=== PATIENT | female | born 1955 | race Caucasian/White ===

== ENCOUNTER 2017-04-20 07:20 | Inpatient (IN) ==
--- NOTE | 2017-04-19 17:42 | Discharge Summary ---
<Joanna Baeza E - Last Filed: 04/19/17 17:40> Date of Encounter: 04/19/17 - Discharge Diagnosis (1) Arthritis of right knee Priority: Primary Status: Chronic (2) Multiple sclerosis, primary progressive Priority: Secondary Status: Chronic (3) HTN (hypertension) Priority: Secondary Status: Chronic Qualifiers: Hypertension type: unspecified Qualified Code(s): I10 - Essential (primary ) hypertension (4) HLD (hyperlipidemia) Priority: Secondary Status: Chronic Qualifiers: Hyperlipidemia type: unspecified Qualified Code(s): E78.5 - Hyperlipidemia , unspecified (5) Hypothyroid Priority: Secondary Status: Chronic Qualifiers: Hypothyroidism type: unspecified Qualified Code(s): E03.9 - Hypothyroidism , unspecified (6) GERD (gastroesophageal reflux disease) Priority: Secondary Status: Chronic - Discharge Medications Home Medications: Aspirin Enteric Coated [Aspirin EC] 325 mg PO DAILY #21 tablet. 04/19/17 [Rx] OxyCODONE Immed Rel [Roxicodone 5 MG] 5 mg PO Q6HR PRN 7 Days #28 tablet [Rx] Baclofen [Lioresal] 10 mg PO TID PRN 04/20/17 [History] Cholecalciferol (D-3) [Vitamin D] 6,000 unit PO DAILY 04/20/17 [History] Dalfampridine [Ampyra] 10 mg PO BID 04/20/17 [History] Docusate [Colace] 100 mg PO DAILY 04/20/17 [History] Esomeprazole Magnesium [Nexium] 40 mg PO DAILY 04/20/17 [History] Lactobacillus Acidophilus/Fos [Acidophilus Probiotic Tablet] 1 tab PO DAILY 09/01 [History] Levothyroxine [Synthroid] 125 mcg PO 0630 04/20/17 [History] Lisinopril [Zestril] 5 mg PO DAILY 04/20/17 [History] Modafinil [Provigil] 200 mg PO DAILY 04/20/17 [History] Multivitamin [One Daily Essential] 1 tab PO DAILY 04/20/17 [History] Sertraline [Zoloft] 50 mg PO BID 04/20/17 [History] Simvastatin [Zocor] 40 mg PO HS 04/20/17 [History] Tizanidine HCl 4 mg PO HS PRN 04/20/17 [History] Allergies/Adverse Reactions: 3 Allergy/AdvReac Type Severity Reaction Status Date / Time Fenoprofen [From Nalfon] Allergy Rash Verified 04/20/17 08:07 Primary care physician: Curt Heart MD - Patient Status Disposition: Transfer Inpatient Rehab Fac Condition: Good - Discharge Instructions Follow Up With: Joanna Baeza PAC [Physician Pinball Machine Repairer] - 04/30/17 1:15 pm Kingston Gifford MD [Partnered Physician] - 05/20/17 4:30 pm Curt Heart MD [Primary Care Provider] - 08/11/17 8:00 am - Hospital Course Hospital course: Ms. Carlos is a 61 year old female - Time Spent with Patient Total time spent providing and/or coordinating discharge services: <Kingston Gifford - Last Filed: 04/23/17 08:03> Date of Encounter: 04/23/17 Time of Encounter: 08:03 - Discharge Diagnosis (1) Status post total right knee replacement Priority: Primary Status: Acute (2) Arthritis of right knee Priority: Primary Status: Chronic (3) GERD (gastroesophageal reflux disease) Priority: Secondary Status: Chronic Qualifiers: Esophagitis presence: esophagitis presence not specified Qualified Code(s) : K21.9 - Gastro-esophageal reflux disease without esophagitis (4) HLD (hyperlipidemia) Priority: Secondary Status: Chronic Qualifiers: Hyperlipidemia type: unspecified Qualified Code(s): E78.5 - Hyperlipidemia , unspecified (5) HTN (hypertension) Priority: Secondary Status: Chronic Qualifiers: Hypertension type: unspecified Qualified Code(s): I10 - Essential (primary ) hypertension (6) Hypothyroid Priority: Secondary Status: Chronic Qualifiers: Hypothyroidism type: unspecified Qualified Code(s): E03.9 - Hypothyroidism , unspecified (7) Multiple sclerosis, primary progressive Priority: Secondary Status: Chronic (8) Acute blood loss anemia Priority: Primary Status: Acute Primary care physician: Curt Heart MD - Patient Status Functional capacity at discharge: uses cane/walker Overall status at discharge: patient is progressing back to baseline - Hospital Course Hospital course: Ms. Carlos is a 61 year old female Status post right total knee replacement The patient had an uneventful postoperative course. They received antibiotics and physical therapy and were discharged in stable condition. There will follow -up in the office in 2 weeks. - Time Spent with Patient Total time spent providing and/or coordinating discharge services:
--- NOTE | 2017-04-19 17:46 | Physician Discharge Referral ---
ExtendedCare Referral Info Transfer To: [facility] Provider in Charge: Dr Kingston Gifford - Diagnosis (1) Arthritis of right knee Priority: Secondary Status: Chronic (2) Multiple sclerosis, primary progressive Priority: Secondary Status: Chronic (3) HTN (hypertension) Priority: Secondary Status: Chronic (4) HLD (hyperlipidemia) Priority: Secondary Status: Chronic (5) Hypothyroid Priority: Secondary Status: Chronic (6) GERD (gastroesophageal reflux disease) Priority: Secondary Status: Chronic (7) Status post total right knee replacement Priority: Primary Status: Acute Expected Duration of Placement: less than 30 days Prognosis: Good Aware of Diagnosis: Patient Aware of Prognosis: Patient - Transfer Medications Prescriptions: OxyCODONE Immed Rel [Roxicodone 5 MG] 5 mg PO Q6HR PRN 7 Days #28 tablet PRN Reason: Pain Aspirin Enteric Coated [Aspirin EC] 325 mg PO DAILY #21 tablet.dr Hodge Medications: Ampyra 08/12/15 [History] Baclofen 08/12/15 [History] Benzonatate [Tessalon] 200 mg PO TID PRN #30 capsule 08/12/15 [Rx] GuaiFENesin ER [Mucinex] 1,200 mg PO BID #20 tbbp.12hr 08/12/15 [Rx] Lisinopril 08/12/15 [History] Nexium 08/12/15 [History] Provigil 08/12/15 [History] Simvastatin 08/12/15 [History] Synthroid 08/12/15 [History] Tizanidine HCl 08/12/15 [History] Zoloft 08/12/15 [History] cephALEXin [Keflex] 500 mg PO QID #40 capsule 08/12/15 [Rx] Aspirin Enteric Coated [Aspirin EC] 325 mg PO DAILY #21 tablet. 04/19/17 [Rx] OxyCODONE Immed Rel [Roxicodone 5 MG] 5 mg PO Q6HR PRN 7 Days #28 tablet [Rx] Allergies/Adverse Reactions: 3 Allergy/AdvReac Type Severity Reaction Status Date / Time Fenoprofen [From Nalfon] Allergy Rash Verified 04/02/17 09:21 - Respiratory Orders Smoking Cessation: Smoking cessation has been advised. For more information, call the [place] Tobacco Quit Line at 8-493-MFSZ-NOW. - Ancillary Orders May use pressure relief devices daily prn, May go on LORENA w/family/respon republican w /meds at nurse discretion PRN, May consult with Dentist, Consultant, International Manager PRN - Mobility Orders Chair, Ambulate - Rehabiliation Orders Rehab Potential: Good Rehab Orders: Evaluation for Physical Therapy, Evaluation for Occupational Therapy Other: Total Knee replacement Precautions x 6 weeks Apply cold therapy wrap 3-6x/day for 20 minutes at a time. Encourage ambulation throughout the day and incentive spirometer 10x/hour. Elevate affected extremity above heart as tolerated. Brace: Wear knee immobilizer at night x 2 weeks. - Treatments Skin tear care topically daily PRN per policy List/Other: Opsite placed. Keep dressing intact until first follow up appointment. If > 50% saturated, notify office, remove dressing and place appropriate dressing back in place. Dressing is water resistant, not water-proof. OK to shower, but do not get dressing wet. - Diet Orders Regular CERTIFICATION: I certify that the transfer of the above named patient to an Extended Care Facility is necessary for the continuing treatment of the diagnosis listed. The above information is true and accurate reflection of patient's current condition. Confidential - Redisclosure prohibited without a patient's written consent.
[2017-04-20] MEDS ORDERED: *HR* Propofol 200 MG/20 ML VIAL IVP ONE (07:48)
[2017-04-20] MEDS ORDERED: *HR* Midazolam HCl 2 MG/2 ML VIAL ONE (07:48)
[2017-04-20] MEDS ORDERED: *HR* FentaNYL (PF) 100 MCG/2 ML VIAL ONE (07:48)
[2017-04-20] MEDS ORDERED: CeFAZolin Syr 2,000MG/20 ML 2,000 MG/20 ML SYRINGE IVPB ONE (07:49)
--- NOTE | 2017-04-20 07:51 | History & Physical Report ---
Date of Encounter: 04/20/17 Time of Encounter: 07:51 24 Hour HP Update - Instructions Instructions: If the History and Physical is less than 30 days old and was completed prior to A.M. admission and or procedure and has NOT been updated on calendar day of procedure please complete this update prior to performing procedure. - Update Patient reports changes in Medical Condition: No Changes in examination, assessment, or condition: No Changes in Medication: No Preop tests/diagnostics Reviewed: Yes Surgery Remains Indicated: Yes Consent for Planned Operative Procedure(s) Verified: Yes - Pre-Operative Checklist Preoperative Checklist Indicated: No Prophylactic Antibiotic Ordered: Yes Is VTE Prophylaxis Indicated?: Yes
[2017-04-20] MEDS ORDERED: Ondansetron 4 MG/2 ML VIAL ONE ×2 (07:58→09:18)
[2017-04-20] MEDS ORDERED: Dexamethasone 4 MG/ML VIAL ONE ×2 (07:58→09:18)
[2017-04-20] MEDS ORDERED: Plasma-Lyte A (PH 7.4) 1,000 ML IVC SCH (08:00)
[2017-04-20] MEDS: Ringers Solution, Lactated 1,000 ML IVC SCH ×2 (08:13→10:31)
[2017-04-20] MEDS ORDERED: Bupivacaine/Clonidine Syringe 1 EACH SYRINGE ONE (08:18)
[2017-04-20] MEDS ORDERED: ROPIVACAINE HCL/PF 0.5% 30 ML VIAL ONE (08:18)
[2017-04-20] MEDS ORDERED: Metoclopramide 10 MG/2 ML VIAL IVP ONE (08:20)
[2017-04-20] MEDS ORDERED: Ethanol\\Acetic Acid\\Na Ace\\Ben 1,000 ML IRRIG.SOLN IR ONE (08:20)
[2017-04-20] MEDS ORDERED: *HR* Labetalol 20 MG/4 ML SYRINGE IVP PRN (08:21)
[2017-04-20] MEDS ORDERED: *HR* HYDROmorphone (PF) 1 MG/ML SYRINGE IVP PRN (08:21)
[2017-04-20] MEDS ORDERED: *HR* Promethazine 25 MG/ML VIAL IVP PRN (08:21)
--- NOTE | 2017-04-20 08:26 | Anesthesia Evaluation PreOp ---
Date of Encounter: 04/20/17 Time of Encounter: 08:24 - Past History Planned Operation: Robotic R-TKR Cardiac History: HTN (maintained on Lisinopril), Hyperlipidemia (maintained on Simvastatin), Other (CAD. ECHO 04/16/2017 - [id number] EV/EV echocardiogram Impressions: LVEF 60-65%. Normal LV chamber size, wall thickness and function. Mild left ventricular diastolic dysfunction. Normal right ventricular structure and function. No evidence of pulmonary hypertension. No significant valvular dysfunction. Left Ventricular Wall Motion: Rest Echo Findings All wall segments showed normal motion.) HOME CARE COMPANION History: Other (Primary Progressive Multiple Sclerosis maintained on Ampyra ; "L-side not as cooperative". Anxiety/Depression maintained on Zoloft. Chronic Pain maintained on Baclofen. RLE - thigh dysthesia of unknown etiology but pt still requests PNB for post-op pain control) Other Medical History: Thyroid (Hypothyroidism miantained on Synthroid), GERD Anesthesia History: No Prior Anesthetic Complications, Past Anesthesia (Appy, Hernia repair, x 2, VC nodule, R-knee patellar tendon repair, Tubal ligation) Alcohol Use: none Drug use: none Medications and Allergies Aspirin Enteric Coated [Aspirin EC] 325 mg PO DAILY #21 tablet. 04/19/17 [Rx] OxyCODONE Immed Rel [Roxicodone 5 MG] 5 mg PO Q6HR PRN 7 Days #28 tablet [Rx] Baclofen [Lioresal] 10 mg PO TID PRN 04/20/17 [History] Cholecalciferol (D-3) [Vitamin D] 6,000 unit PO DAILY 04/20/17 [History] Dalfampridine [Ampyra] 10 mg PO BID 04/20/17 [History] Docusate [Colace] 100 mg PO DAILY 04/20/17 [History] Esomeprazole Magnesium [Nexium] 40 mg PO DAILY 04/20/17 [History] Lactobacillus Acidophilus/Fos [Acidophilus Probiotic Tablet] 1 tab PO DAILY 09/01 [History] Levothyroxine [Synthroid] 125 mcg PO 0630 04/20/17 [History] Lisinopril [Zestril] 5 mg PO DAILY 04/20/17 [History] Modafinil [Provigil] 200 mg PO DAILY 04/20/17 [History] Multivitamin [One Daily Essential] 1 tab PO DAILY 04/20/17 [History] Sertraline [Zoloft] 50 mg PO BID 04/20/17 [History] Simvastatin [Zocor] 40 mg PO HS 04/20/17 [History] Tizanidine HCl [Tizanidine HCl] 4 mg PO HS PRN 04/20/17 [History] 3 Allergy/AdvReac Type Severity Reaction Status Date / Time Fenoprofen [From Nalfon] Allergy Rash Verified 04/20/17 08:07 - Meds/Allergy Pre-op Review Medications Reviewed: Yes Allergies Reviewed: Yes Beta Blockers on Current Med List: No Anesthesia Results - Labs Laboratory Tests 03/26/17 03/26/17 04/02/17 10:54 10:54 10:12 WBC 4.3 Hgb 13.6 Hct 41.2 Plt Count 276 PT 11.4 INR 1.1 APTT 27.0 Sodium 138 Potassium 3.9 Chloride 105 Carbon Dioxide 23 BUN 16 Creatinine 0.81 Est GFR ( Amer) > 60 Est GFR (Non-Af Amer) > 60 BUN/Creatinine Ratio 20 Glucose 96 - Imaging EKG: image reviewed (72bpm SR, minimal ST depression) Anesthesia Exam O2 Sat Height 1.73 m Height 1.73 m Height 1.73 m Weight 87.543 kg Weight 87.543 kg Weight 87.543 kg O2 Sat by Pulse Oximetry 96 O2 Sat by Pulse Oximetry 96 Vital Signs Temp Pulse Resp BP Pulse Ox 98.3 F 78 18 124/73 96 04/20/17 07:37 04/20/17 07:37 04/20/17 07:37 04/20/17 07:37 04/20/17 07:37 Height: 5'7" Weight: 191# BMI = 29 NPO (# of Hours): MNoc - HEENT Pupil (Motor): Pupils equal, EOMI Mallampati: II Teeth: Normal Oral Opening: Less than or equal to 3 - HOME CARE COMPANION LOC: Oriented HOME CARE COMPANION Motor: Normal RUE, Normal LUE, Normal RLE, Normal LLE, Normal Face HOME CARE COMPANION Sensory: Normal: RUE, LUE, RLE, LLE, Face - Cardiac Rhythm: Regular Murmur: None - Pulmonary Breath Sounds: bilateral Clear Respiratory Effort: Symmetrical Anesthesia Assess/Plan ASA Score: 3 (HTN, MS, Hypothyroidism, Anxiety/Depression) Modified Dulce Scale for Level of Consciousness: Cooperative, oriented, and tranquil Anesthetic Plan: General, Regional Monitoring Plan: Standard Monitors Recovery Plan: PACU Anes Supervising Prov Stmt: Pt seen/evaluated, R&B discussed, questions answered and consent obtained. Rachael Hart MD
[2017-04-20] MEDS ORDERED: EPHEDrine 50 MG/ML VIAL ONE (09:19)
--- NOTE | 2017-04-20 09:24 | Anesthesia Procedures ---
Date of Encounter: 04/20/17 Time of Encounter: 09:21 Procedures: Anesthesia - Nerve Block Procedure Date: 04/20/17 Time: 09:21 Surgical Procedure: right tka robotic Checklist: Correct Patient Identifier, Correct procedure, History checked Correct side: Right Blood Thinner: No Monitor Applied: EKG, BP, Pulse Oximetry Supplemental Oxygen via Nasal Cannula (L/min): 2 Sedation: Versed (mg): 2 Sedation: Fentanyl (mcg): 100 Indication: Post Op Analgesia (request per dr trujillo for post op pain control) Block Type: Femoral, Other (ipack) Sterile Technique: Yes Ultrasound used: Yes Anatomy identified: Yes Visual spread of Local: Yes Neuro Stimulation: Yes Nerve Stimulator Range: >0.4 - 0.6 mA Blood on Needle Aspiration: No Smooth Injection of Local: Yes Pain with Injection of Local: No Prep: Chlorhexadine Needle: 22 x 50 mm Stimuplex, 21 x 100 mm Stimuplex Local: 0.25% Bupivicaine w/Clonidine 20 mcg/cc (ipack), Ropivacaine (femoral) Volume (cc): 30 Number of Attempts: 1 Complications: None/effective block Vitals: Vital Signs/O2 Sat/Glucose, Most Current Temp Pulse Resp BP Pulse Ox 04/20/17 08:56 69 16 126/82 99 04/20/17 07:59 98.3 F 78 18 124/73 96 04/20/17 07:37 98.3 F 78 18 124/73 96 Comments: pt tolerated procedure well. no complications. vss.
[2017-04-20] MEDS ORDERED: *HR* HYDROmorphone 2 MG/ML SYRINGE ONE (09:34)
--- NOTE | 2017-04-20 10:16 | Orthopedic Operative Note ---
Date of procedure: 04/20/17 Pre-op diagnosis: Right knee arthritis Post-op diagnosis: same Procedure: Procedure: Right robotic-assisted Total knee replacement Estimated blood loss: 300 cc Hardware: Metal and polyethylene replacement. [place] Femur: 3 Tibia: 3 PS insert:13 Patella: 36 Exam Under anesthesia: Hyperextension 5 degrees as calculated by the robot full flexion and no instability Procedural Notes: Grade 3 arthritic changes all 3 compartments. Operative procedure: The patient was brought to the operating room and placed on the operating room table. After general anesthesia was administered the operative knee was examined. Findings were noted in the exam under anesthesia. The operative extremity was prepped and draped in sterile surgical fashion. The patient received IV antibiotics prior to skin incision. A standard midline incision was made centered over the patella. The incision was made through the skin and subcutaneous tissue. A medial parapatellar tendon approach was performed. Care was taken to preserve tissue along the medial aspect of the patella. And to protect the patella tendon. The deep MCL was released off the medial tibia. The infra patella fat pad was excised. The patella was everted and cut was made at the level of the insertion of the quadriceps and patella tendon. The patella was sized to a 36 the guide was seated and the lug holes are drilled. Knee was brought into flexion. Patient noted to have a 3 arthritic changes all 3 compartments. Steinmann pins were placed in the tibia and the femur for the tibial and femoral arrays respectively. Checkpoints were also placed in the tibia and the femur for calculation purposes. The knee including the femur and the tibial registered. Osteophytes, ACL and PCL were excised at this point. Extension was to hyper-a 5 degrees and 2 degrees varus. A varus and valgus stresses were assessed, 90 degrees of flexion varus and valgus stresses were assessed and components were adjusted on the computer for the robotic cut positions. Femoral cuts were made first with robotic assistance, these included the anterior cut posterior cuts chamfer cuts. Tibial cut was then performed with robotic assistance as well. Bone fragments were removed, as well as the medial and lateral meniscus. The size 3 femoral guide was seated box cut was made lug holes are drilled. The size 3 tibial tray was seated and prepared with the fin cutter. Trial reduction with the 13 PS Verito revealed extension of hyper-2 degrees and full flexion. No varus valgus instability. Trial reduction revealed excellent patella tracking. All trial components were removed all bony surfaces were irrigated. Tibias cemented followed by the femur PS Verito size 13 was seated and secured patella. Patient had similar findings for motion and stability. The knee was closed by the PA. The knee was then irrigated out with 2 L of pulse irrigation. The extensor mechanism was closed with #2 FiberWire suture and #2 PDS suture. The subcutaneous tissue was then irrigated and closed deep with #1 PDS suture superficially with 0 PDS suture and skin was closed with zip tie The patient was then placed in a sterile dressing and a postoperative brace extubated and transferred to recovery room in stable condition. Anesthesia: GETCitlalli Surgeon: Kingston Gifford Condition: stable Disposition: PACU
[2017-04-20 11:11] LABS: Hematocrit 33.3 % (35.3-44.9); Hemoglobin 10.9 g/dL (11.5-15.4)
--- NOTE | 2017-04-20 11:23 | Anesthesia Evaluation Post Op ---
Date of Encounter: 04/20/17 Time of Encounter: 11:22 - Vital Signs Vital Signs: Vital Signs/O2 Sat, Most Current Temp Pulse Resp BP Pulse Ox 96.8 F L 81 16 133/73 97 04/20/17 10:50 04/20/17 11:10 04/20/17 11:10 04/20/17 11:10 04/20/17 11:10 - Lungs Lungs: Clear Ascult./Percussion - Airway Airway: Non-obstructed - Cardiovascular Regular Rate - Mental Status Mental Status: Alert & Oriented, Answers Appropriately - Pain Pain Scale: 0 - Nausea Vomiting Nausea Vomiting: Not Present - Hydration Hydration: Tolerates oral liquids, Has not voided - Discharge PostOp Status: Transfer Patient to floor
[2017-04-20] MEDS ORDERED: tiZANidine 4 MG TABLET PO PRN (11:32)
[2017-04-20] MEDS ORDERED: Temazepam 15 MG CAPSULE PO PRN (11:32)
[2017-04-20] MEDS ORDERED: MOM Conc 10 ML UD.LIQ PO PRN (11:32)
[2017-04-20] MEDS ORDERED: *HR* OxyCODONE Immed Rel 5 MG TABLET PO PRN (11:32)
[2017-04-20] MEDS ORDERED: Sennosides 8.6 MG TABLET PO PRN (11:32)
[2017-04-20] MEDS ORDERED: Naloxone 0.4 MG/ML INJ IVP PRN (11:32)
[2017-04-20] MEDS ORDERED: Ringers Solution, Lactated 1,000 ML IVC SCH (11:32)
[2017-04-20] MEDS ORDERED: Ondansetron 4 MG/2 ML VIAL IVP PRN (11:32)
[2017-04-20] MEDS: CeFAZolin Premix DUPLEX 2,000 MG/50 ML BAG IVPB SCH (16:51)
[2017-04-20] MEDS: *HR* Enoxaparin 30 MG/0.3 ML SYRINGE SQ SCH (16:51)
[2017-04-20] MEDS ORDERED: *HR* Enoxaparin 30 MG/0.3 ML SYRINGE SQ SCH (18:00)
[2017-04-20] MEDS: *HR* OxyCODONE Immed Rel 5 MG TABLET PO PRN (19:41)
[2017-04-20] MEDS: *HR* HYDROmorphone (PF) 1 MG/ML SYRINGE IVP PRN (22:56)
[2017-04-21] MEDS: CeFAZolin Premix DUPLEX 2,000 MG/50 ML BAG IVPB SCH (00:51)
[2017-04-21] MEDS: *HR* OxyCODONE Immed Rel 5 MG TABLET PO PRN ×2 (03:10→19:23)
[2017-04-21 05:10] LABS: Hematocrit 29.2 % (35.3-44.9); Hemoglobin 9.4 g/dL (11.5-15.4)
[2017-04-21 05:20] LABS: BUN/Creatinine Ratio 16 (6-26); Blood Urea Nitrogen 10 mg/dL (7-20); Carbon Dioxide 27 mEq/L (19-29); Chloride 102 mEq/L (98-109); Potassium 3.8 mEq/L (3.5-4.5); Sodium 137 mEq/L (136-145); eGFR For African Americans > 60 (> 60)
[2017-04-21 05:21] LABS: Calcium 8.2 mg/dL (8.6-10.8); Glucose 104 mg/dL (70-99); Osmolality,Calculated 283 (280-300); eGFR For Non-African Americans > 60 (> 60)
[2017-04-21] MEDS: *HR* Enoxaparin 30 MG/0.3 ML SYRINGE SQ SCH ×2 (05:31→17:26)
[2017-04-21] MEDS: *HR* HYDROmorphone (PF) 1 MG/ML SYRINGE IVP PRN ×5 (05:32→22:02)
--- NOTE | 2017-04-21 07:12 | Orthopedics Progress Note ---
Date of Encounter: 04/21/17 Time of Encounter: 07:12 - Assessment and Plan (1) Status post total right knee replacement Current Visit: No Status: Acute (2) Arthritis of right knee Current Visit: No Status: Chronic (3) GERD (gastroesophageal reflux disease) Current Visit: No Status: Chronic Qualifiers: Esophagitis presence: esophagitis presence not specified Qualified Code(s) : K21.9 - Gastro-esophageal reflux disease without esophagitis (4) HLD (hyperlipidemia) Current Visit: No Status: Chronic Qualifiers: Hyperlipidemia type: unspecified Qualified Code(s): E78.5 - Hyperlipidemia , unspecified (5) HTN (hypertension) Current Visit: No Status: Chronic Qualifiers: Hypertension type: unspecified Qualified Code(s): I10 - Essential (primary ) hypertension (6) Hypothyroid Current Visit: No Status: Chronic Qualifiers: Hypothyroidism type: unspecified Qualified Code(s): E03.9 - Hypothyroidism , unspecified (7) Multiple sclerosis, primary progressive Current Visit: No Status: Chronic (8) Acute blood loss anemia Current Visit: Yes Status: Acute Subjective Interval history: Patient was seen this morning doing well without complaints. Afebrile vital signs stable. Operative extremity: Neurovascularly intact Dressing clean dry and intact Calves nontender Assessment and plan: Continue with postoperative care Hemoglobin 9.4 Objective Vital signs: Vital Signs Temp Pulse Resp BP Pulse Ox 04/21/17 06:24 98.8 F 71 18 109/68 93 04/21/17 03:16 98.6 F 64 18 114/74 96 04/21/17 00:45 98.7 F 74 16 94/54 95 04/20/17 19:45 98.4 F 69 16 111/70 95 04/20/17 14:45 97.8 F 78 14 95/65 93 04/20/17 13:04 97 F L 79 14 131/78 96 04/20/17 11:50 97.7 F 83 14 126/81 998 04/20/17 11:37 97.4 F L 83 16 127/79 99 04/20/17 11:20 97.4 F L 80 16 133/74 96 04/20/17 11:10 81 16 133/73 97 04/20/17 11:00 82 12 147/82 97 04/20/17 10:50 96.8 F L 71 12 120/72 97 04/20/17 08:56 69 16 126/82 99 04/20/17 07:59 98.3 F 78 18 124/73 96 04/20/17 07:37 98.3 F 78 18 124/73 96 Intake and Output 04/20/17 04/20/17 04/21/17 15:59 23:59 07:59 Intake Total 1400 / 1400 150 / 150 0 / 0 Output Total 300 / 300 900 / 900 250 / 250 Balance 1100 / 1100 -750 / -750 -250 / -250 Intake: IV Fluids 1000 / 1000 50 / 50 Lactated Ringers 1,000 ML @ 25 1000 / 1000 mls/hr IVC .Q24H TAYE Rx#: [id number] Ancef Premix DUPLEX 2,000 mg In 50 / 50 50 ml @ 100 mls/hr IVPB Q8H TAYE Rx#:[id number] Oral 400 / 400 100 / 100 0 / 0 Output: Urine 900 / 900 250 / 250 Estimated Blood Loss 300 / 300 Other: Meal Dinner Percent of Meal Consumed 100% # Voids 1 Weight 88.12 kg Patient Weight 04/21/17 23:59 Weight 88.12 kg - Labs CBC & BMP: 04/21/17 04:10 04/21/17 04:10 Labs: Abnormal lab results Hgb 9.4 g/dL (11.5-15.4) L D 04/21/17 04:10 Hct 29.2 % (35.3-44.9) L 04/21/17 04:10 Glucose 104 mg/dL (70-99) H 04/21/17 04:10 Calcium 8.2 mg/dL (8.6-10.8) L 04/21/17 04:10 - VTE Documentation of Mechanical Device: Venous foot pump, device Consult Discharge Plan - Plan Referrals: Curt Heart MD [Primary Care Provider] -
[2017-04-21] MEDS: Lactobacillus 1 EACH CAP.SPRINK PO SCH (09:14)
[2017-04-21] MEDS: Multivit/Ca/Min/Fe/FA 1 TAB TABLET PO SCH (09:14)
[2017-04-21] MEDS: Cholecalciferol (D-3) 1,000 UNIT TABLET PO SCH (09:14)
[2017-04-21] MEDS: Baclofen 10 MG TABLET PO PRN (09:36)
--- NOTE | 2017-04-21 11:51 | Event Note ---
Date of Encounter: 04/21/17 Time of Encounter: 12:00 PCR- POD#1 RIGHT TKR ROBOTIC 04/20/17 JULIUS PCR - Patient seen at bedside. Labs: H/H 9.4/29.2 Pain control: Adequate - c/o pain to back of knee - no warmth, tenderness or erythema to posterior calf. Trial Lidocaine patch for local relief. Participating in PT. All questions and concerns addressed. Educated on use of incentive spirometer, ambulation, and hydration. Patient educated on post-operative restrictions and care. Addressed: see above. D/C plan: Traditions - continuity in place
[2017-04-22] MEDS: *HR* OxyCODONE Immed Rel 5 MG TABLET PO PRN ×5 (02:29→23:48)
[2017-04-22] MEDS: *HR* Enoxaparin 30 MG/0.3 ML SYRINGE SQ SCH ×2 (05:39→17:04)
[2017-04-22] MEDS: *HR* HYDROmorphone (PF) 1 MG/ML SYRINGE IVP PRN (05:45)
[2017-04-22 05:51] LABS: Hematocrit 29.4 % (35.3-44.9); Hemoglobin 9.3 g/dL (11.5-15.4)
[2017-04-22 06:11] LABS: BUN/Creatinine Ratio 15 (6-26); Blood Urea Nitrogen 9 mg/dL (7-20); Calcium 8.7 mg/dL (8.6-10.8); Carbon Dioxide 28 mEq/L (19-29); Chloride 99 mEq/L (98-109); Glucose 112 mg/dL (70-99); Osmolality,Calculated 281 (280-300); Sodium 136 mEq/L (136-145); eGFR For African Americans > 60 (> 60); eGFR For Non-African Americans > 60 (> 60)
--- NOTE | 2017-04-22 07:58 | Orthopedics Progress Note ---
Date of Encounter: 04/22/17 Time of Encounter: 07:58 - Assessment and Plan (1) Status post total right knee replacement Current Visit: No Status: Acute (2) Arthritis of right knee Current Visit: No Status: Chronic (3) GERD (gastroesophageal reflux disease) Current Visit: No Status: Chronic Qualifiers: Esophagitis presence: esophagitis presence not specified Qualified Code(s) : K21.9 - Gastro-esophageal reflux disease without esophagitis (4) HLD (hyperlipidemia) Current Visit: No Status: Chronic Qualifiers: Hyperlipidemia type: unspecified Qualified Code(s): E78.5 - Hyperlipidemia , unspecified (5) HTN (hypertension) Current Visit: No Status: Chronic Qualifiers: Hypertension type: unspecified Qualified Code(s): I10 - Essential (primary ) hypertension (6) Hypothyroid Current Visit: No Status: Chronic Qualifiers: Hypothyroidism type: unspecified Qualified Code(s): E03.9 - Hypothyroidism , unspecified (7) Multiple sclerosis, primary progressive Current Visit: No Status: Chronic (8) Acute blood loss anemia Current Visit: Yes Status: Acute Subjective Interval history: Patient was seen this morning doing well without complaints. Afebrile vital signs stable. Operative extremity: Neurovascularly intact Dressing clean dry and intact Calves nontender Assessment and plan: Continue with postoperative care Hemoglobin 9.3 Objective Vital signs: Vital Signs Temp Pulse Resp BP Pulse Ox 04/22/17 06:24 99.7 F H 75 18 110/68 93 04/22/17 05:04 98.7 F 76 18 111/70 90 04/22/17 02:37 122/74 04/21/17 23:32 97.8 F 70 16 100/64 90 04/21/17 19:46 99.5 F 73 17 123/74 92 04/21/17 15:09 98.6 F 83 16 134/71 93 04/21/17 10:37 98.9 F 78 18 119/73 93 Intake and Output 04/21/17 04/21/17 04/22/17 15:59 23:59 07:59 Intake Total 240 / 240 800 / 800 600 / 600 Balance 240 / 240 800 / 800 600 / 600 Intake: Oral 240 / 240 800 / 800 600 / 600 Other: Meal Breakfast Percent of Meal Consumed 100% # Voids 2 1 1 - Labs CBC & BMP: 04/22/17 04:41 04/22/17 04:41 Labs: Abnormal lab results Hgb 9.3 g/dL (11.5-15.4) L 04/22/17 04:41 Hct 29.4 % (35.3-44.9) L 04/22/17 04:41 Glucose 112 mg/dL (70-99) H 04/22/17 04:41 - VTE Documentation of Mechanical Device: Venous foot pump, device Consult Discharge Plan - Plan Referrals: Joanna Baeza PAC [Physician Cardiology Technologist] - 04/30/17 1:15 pm Kingston Gifford MD [Partnered Physician] - 05/20/17 4:30 pm Curt Heart MD [Primary Care Provider] - 08/11/17 8:00 am
[2017-04-22] MEDS: Multivit/Ca/Min/Fe/FA 1 TAB TABLET PO SCH (08:48)
[2017-04-22] MEDS: Cholecalciferol (D-3) 1,000 UNIT TABLET PO SCH (08:48)
[2017-04-22] MEDS: Lactobacillus 1 EACH CAP.SPRINK PO SCH (08:48)
[2017-04-22] MEDS: Baclofen 10 MG TABLET PO PRN (08:55)
--- NOTE | 2017-04-22 12:23 | Event Note ---
Date of Encounter: 04/22/17 Time of Encounter: 11:10 PCR- POD#2 RIGHT TKR ROBOTIC 04/20/17 JULIUS PCR - Patient seen at bedside. Labs: H/H 9.3/29.4 Pain control: Adequate - Lidocaine patch has helped for pain relief Participating in PT. States her MS is causing stiff muscles and slowing her down in therapy. Encouraged her to continue participating every day. All questions and concerns addressed. Educated on use of incentive spirometer, ambulation, and hydration. Patient educated on post-operative restrictions and care. Addressed: see above. D/C plan: Traditions - continuity in place, pending authorization
[2017-04-22] MEDS: tiZANidine 4 MG TABLET PO PRN ×2 (14:48→22:37)
[2017-04-23] MEDS: *HR* Enoxaparin 30 MG/0.3 ML SYRINGE SQ SCH (05:20)
[2017-04-23] MEDS: *HR* OxyCODONE Immed Rel 5 MG TABLET PO PRN ×2 (05:21→09:28)
[2017-04-23] MEDS: Lactobacillus 1 EACH CAP.SPRINK PO SCH (08:11)
[2017-04-23] MEDS: Multivit/Ca/Min/Fe/FA 1 TAB TABLET PO SCH (08:11)
[2017-04-23] MEDS: Cholecalciferol (D-3) 1,000 UNIT TABLET PO SCH (08:11)
[2017-04-23] MEDS: tiZANidine 4 MG TABLET PO PRN (09:28)
[2017-04-23 11:37] VITALS: BP 107/68
== END 2017-04-23 11:49 | DRG 470 ==
LOC: SAMDAY 07:20 → 3NENU 11:33
PROVIDERS: ADMIT Orthopaedic Surgery; ATTEND Orthopaedic Surgery